=== PATIENT | male | born 1990 | race Caucasian/White ===

== ENCOUNTER 2022-12-01 15:32 | Outpatient (REF) | payer OTHER, SELFPAY ==
--- NOTE | ~2022-12-01 | XR_ITS ---
EXAMINATION: XR HAND, LEFT CLINICAL INFORMATION: Pain COMPARISON: None available. TECHNIQUE: PA, lateral, and oblique views of the left hand. FINDINGS: No radiopaque foreign body, erosive change, fracture, dislocation, or destructive process. XR/XR hand LT min 3V IMPRESSION: Negative
== END 2022-12-01 15:33 | disposition home or self-care (01) ==
LOC: HO.HMGCX 15:32
PROVIDERS: Visit Provider Physician Assistant
DX: S61.412A Laceration without foreign body of left hand, initial encounter (principal); X58.XXXA Exposure to other specified factors, initial encounter; Y93.9 Activity, unspecified; Y92.9 Unspecified place or not applicable; Y99.9 Unspecified external cause status
CPT/HCPCS: 73130

== ENCOUNTER 2022-12-14 16:13 | Outpatient (AMB) | payer OTHER, SELFPAY ==
--- NOTE | 2022-12-14 16:14 | MHC.OFFWIV ---
Intake Vital Signs 12/14/22 16:15 Height 6 ft 2 in BP 140/90 H Blood Pressure Location Lt brachial Position Sitting Pulse 95 Pulse Source Pulse Oximeter Temp 96.4 F L Temp Source Temporal Artery Scan Pulse Oximetry (%) 99 Oxygen Delivery Method Room Air Intake Visit Reasons: EP stitch removal (lobby) Intake Note: Pt is here to remove his stitches on his left hand three fingers. Patient Tobacco Use Status: Former Tobacco user Allergies No Known Allergies Allergy (Verified 12/23/22 15:12) Medication List - Last Reconciled 12/23/22 by Cullen Infante MD No Known Home Meds Do you need a note to return to daycare/school/sports/work: No HPI EP stitch removal (lobby) HPI Details 32-year-old male presents to the office for a sick visit. He suffered laceration on 3 fingers on his left hand. The stitches were placed in the emergency room. He is here for stitch removal. PFSH Social History Patient Tobacco Use Status: Former Tobacco user Physical Exam Vital Signs: Last Vital Signs Temp 96.4 F L 12/14/22 16:15 Pulse 95 12/14/22 16:15 BP 140/90 H 12/14/22 16:15 Pulse Ox 99 12/14/22 16:15 Oxygen Delivery Method Room Air 12/14/22 16:15 Extrem Other: Left hand: Healing wound on his 3 fingers, on the volar aspect. Assessment & Plan Assessment & Plan (1) Open wound, hand: Code(s): S61.409A - Unspecified open wound of unspecified hand, initial encounter Plan: Stitches removed. Patient tolerated the procedure well. Coding Level of Care Code Est Pt Level 3 (48155) Diagnoses Open wound, hand S61.409A
[2022-12-14 16:15] VITALS: BP 140/90; PULSE 95; TEMP 35.8; O2SAT 99
== END 2022-12-14 16:56 | disposition home or self-care (01) ==
PROVIDERS: Visit Provider Internal Medicine
DX: S61.409A Unspecified open wound of unspecified hand, initial encounter (principal)
CPT/HCPCS: 99213